=== PATIENT | male | born 1955 | race Hispanic/Latino ===

== ENCOUNTER 2018-11-05 05:47 | Day surgery (SDC) | payer OTHER ==
[~2018-11-05] VITALS: Ht 180.3 cm; Wt 75.3 kg
[~2018-11-05 05:47] MED LIST: CHOL100040 PO; LACT10PA5 PO; MIDO10TA PO; PANT40TA25 PO; SODIUM CHLORIDE 0.9% 1000ML 1,000 ML IV ONE; SPIR25TA6 PO
[2018-11-05 07:39] VITALS: BP 116/85
[2018-11-05 08:06] LABS: HEMATOCRIT 34.3 % (42-54); MEAN CORPUSCULAR VOLUME 84.3 fL (79-99); PLATELET COUNT (AUTO) 232 K/uL (130-400); RED BLOOD CELL COUNT(AUTO) 4.06 MIL/uL (4.50-6.20); WHITE BLOOD COUNT (AUTO) 5.9 K/uL (4.8-10.8)
[2018-11-05 08:36] LABS: INR 1.35 (0.85-1.15); PROTHROMBIN TIME 14.1 SEC (9.6-11.6)
[2018-11-05 08:54] LABS: BASOPHILS % (MANUAL) 4 % (0-2); EOSINOPHILS % (MANUAL) 3 % (1-6); LYMPHOCYTES % (MANUAL) 17 % (22-44); MAN.DIFF COMMENT-IMPRESSION MANUAL DIFFERENTIAL; MONOCYTES % (MANUAL) 10 % (2-9); PLATELET MORPHOLOGY COMMENT ADEQUATE; SEGMENTED NEUTROPHILS % 66 % (40-70)
[2018-11-05 09:18] VITALS: BP 108/59
[2018-11-05 09:23] VITALS: BP 100/58
[2018-11-05 09:28] VITALS: BP 108/63
[2018-11-05 09:35] VITALS: BP 120/82
== END 2018-11-05 09:43 | disposition home or self-care (01) ==
LOC: DAH 05:47 → ENDO 05:47
PROVIDERS: ATTEND Internal Medicine Gastroenterology
DX: I85.01 Esophageal varices with bleeding (principal); K74.60 Unspecified cirrhosis of liver; K31.89 Other diseases of stomach and duodenum; K21.9 Gastro-esophageal reflux disease without esophagitis; R18.8 Other ascites; Z87.891 Personal history of nicotine dependence; Z79.899 Other long term (current) drug therapy
CPT/HCPCS: 36415; 43244; 85025; 85610; A4606; J7030